=== PATIENT | female | born 1970 | race Caucasian/White ===

== ENCOUNTER → 2024-03-14 14:48 | Outpatient (REF) | payer BC, SELFPAY | LOC: HWWDC 14:48 | PROVIDERS: ATTENDING PHYSICIAN Nurse Practitioner Adult Health | DX: Z12.31 Encounter for screening mammogram for malignant neoplasm of breast (principal) | CPT/HCPCS: 77063; 77067 ==

== ENCOUNTER → 2025-02-20 12:39 | Outpatient (REF) | payer BC, SELFPAY | LOC: HWRCS 12:39 | PROVIDERS: ATTENDING PHYSICIAN Nurse Practitioner Adult Health | DX: I10 Essential (primary) hypertension (principal); R01.1 Cardiac murmur, unspecified | CPT/HCPCS: 93306 ==